=== PATIENT | female | born 1995 | race Two or more races ===

== ENCOUNTER → 2020-02-28 | Emergency (ER) | payer MEDICAID, OTHER ==
[~2020-02-28] VITALS: Ht 170.2 cm; Wt 63.5 kg
[2020-02-28 18:31] VITALS: BP 144/94
== END | disposition home or self-care (01) ==
LOC: ER 18:18
DX: U07.1 COVID-19 (principal); R07.89 Other chest pain
CPT/HCPCS: 93005